=== PATIENT | male | born 1970 | race Caucasian/White ===

== ENCOUNTER 2020-02-10 23:01 | Emergency (ER) | payer BC ==
[~2020-02-10] VITALS: Ht 172.7 cm; Wt 83.9 kg
[~2020-02-10 23:01] MED LIST: BP MED; BUPROPION; LEVOTHYROXIN0.088 MG PO; LISINOPRIL20 MG PO; LOPID600 MG PO; NORCO 5-325 TA1 EACH PO; PREVACID 30MG C30 M1 PG; TRAMADOL; VITAMIN D PO; WELLBUTRIN XL300 MG PO; ZOFRAN 4 MG ORAL4 M1 DIS
[2020-02-10 23:58] LABS: ABSOLUTE NEUTROPHILS 4.7 thou/uL (1.4-8.2); BASOPHILS 0.4 % (0.0-2.0); EOSINOPHILS 2.1 % (0.0-3.0); HEMATOCRIT 45.7 % (42.0-52.0); HEMOGLOBIN 16.4 gm/dL (14.0-18.0); LYMPHOCYTES 20.7 % (24.0-44.0); MCH 30.7 pg (26.0-34.0); MCHC 35.9 g/dL (28.0-37.0); MCV 85.6 fL (80.0-100.0); MONOCYTES 6.5 % (1.0-8.0); PLATELET COUNT 146 thou/uL (150-400); POLYS 70.3 % (36.0-66.0); RBC 5.34 mil/uL (4.50-6.00); RDW 13.1 % (10.5-14.5); WBC 6.7 thou/uL (4.0-11.0)
[2020-02-11 00:03] LABS: CREATININE 1.4 mg/dL (0.7-1.3); POTASSIUM 3.7 mmol/L (3.5-5.1)
[2020-02-11 00:10] LABS: ALBUMIN 4.4 g/dL (3.4-5.0); TOTAL BILIRUBIN 1.4 mg/dL (0.2-1.0); TOTAL PROTEIN 7.4 g/dL (6.4-8.2)
[2020-02-11 00:29] LABS: URINE BILIRUBIN NEGATIVE (Negative); URINE BLOOD 3+ (Negative); URINE CLARITY CLEAR; URINE COLOR YELLOW; URINE GLUCOSE-RANDOM* NEGATIVE (Negative); URINE KETONES 1+ (Negative); URINE LEUKOCYTES-REFLEX NEGATIVE (Negative); URINE NITRITE-REFLEX NEGATIVE (Negative); URINE PROTEIN (DIPSTICK) NEGATIVE (Negative); URINE SPECIFIC GRAVITY 1.015 (1.005-1.035); URINE UROBILINOGEN 0.2 E.U./dl (0.2-1.0)
[2020-02-11 01:05] LABS: SQUAMOUS 0-3 Few /LPF (0-3); URINE WBC-REFLEX 0-5 Rare /HPF (0-5)
[2020-02-11 01:06] LABS: CASTS None Seen /LPF (None Seen); CRYSTALS None Seen /LPF (None Seen); MUCUS 0-3 Light strn/LPF (None Seen)
[2020-02-11] MEDS ORDERED: FLOMAX0.4 MG PO (01:30)
[2020-02-11] MEDS ORDERED: ZOFRAN ODT4 MG PO (01:30)
[2020-02-11] MEDS ORDERED: PERCOCET PO ×6 (01:30→01:45)
[2020-02-11 01:51] VITALS: BP 134/74
== END 2020-02-11 01:51 | disposition home or self-care (01) ==
LOC: ER 23:01
PROVIDERS: Emergency Medicine
DX: N23 Unspecified renal colic (principal); R06.02 Shortness of breath; M54.5 Low back pain; I10 Essential (primary) hypertension; E78.1 Pure hyperglyceridemia; F17.210 Nicotine dependence, cigarettes, uncomplicated; Z87.442 Personal history of urinary calculi; Z79.899 Other long term (current) drug therapy